=== PATIENT | female | born 1960 | race Caucasian/White ===

== ENCOUNTER 2022-08-30 08:18 | Day surgery (SDC) | payer OTHER ==
[~2022-08-30 08:18] MED LIST: Lactated Ringers 1,000 ML IV SCH
--- NOTE | 2022-08-30 08:33 | HP ---
DATE OF SURGERY: 08/30/2022 HISTORY OF PRESENT ILLNESS: The patient is a 61-year-old with dysphagia, upper esophagus gets stuck and has been going on for months worse recently. No prior upper endoscopy. Family history negative for esophageal cancer. PAST MEDICAL HISTORY: Irritable bowel syndrome, arthritis, gout, history of stroke, transient ischemic attack, depression, hypothyroidism, rheumatoid arthritis, diabetes mellitus type II, cardiac stenosis, coronary artery disease and had cardiac stents, chronic obstructive pulmonary disease. She had dysphagia and heartburn in the past. PAST SURGICAL HISTORY: Appendectomy, section, hysterectomy in the past. Colonoscopy in the past. Cardiac stents. Knee meniscus surgery. Colon resection at [facility] previously. Benign breast biopsy in the past. Cardiac cath in the past. MEDICATIONS: Isosorbide mononitrate, Probiomax, fluticasone furoate inhalation, nitroglycerin PRN, vitamin B12, vitamin D3, atorvastatin, meclizine, gabapentin, clopidogrel, ProAir, ropinirole, buspirone, metformin, levothyroxine, primidone, metoprolol, Trulicity, magnesium. ALLERGIES: NKDA. FAMILY HISTORY: Negative for esophageal cancer. SOCIAL HISTORY: Former smoker. No alcohol abuse. REVIEW OF SYSTEMS: Fourteen systems reviewed pertinent for multiple medical problems as noted above. No current chest pain or palpitations. Other systems negative or noncontributory as above and per preadmission questionnaire. PHYSICAL EXAMINATION: VITALS: Height 5'5". BMI 28.46. GENERAL: No acute distress. HEENT: Sclerae nonicteric. EOMI. Oropharynx mucous membranes moist. NECK: No JVD. CHEST: Equal excursion, nonlabored breathing. CVS: Regular rate and rhythm. ABDOMEN: Soft. No peritoneal signs. EXTREMITIES: No significant edema. NEURO: Alert, oriented, moving extremities symmetrically. PSYCH: Appropriate mood and affect. SKIN: Dry. IMPRESSION: Dysphagia upper esophagus, odynophagia. Needs EGD possible biopsy, possible dilatation. She was shown the risk sheet explained the procedure in detail including but not limited to bleeding or infection, risk of bowel injury or perforation, risk of missed or nondiagnosis or incomplete exam, possibly requiring barium swallow, other studies or procedures. Possibility should she have a stenosis and needs dilated and improves may need to be repeated again down the road. She also understands remote risk of perforation possible requiring transfer for stent placement as open procedure. She also understands that this could be more of a functional or neurologic issue. If she does not have a narrowed area may not benefit from dilatation and may not help. If she does have a narrowed area that the balloon dilatation does not help, she might need a different type of dilator at a different date. She understands. Will proceed with EGD possible biopsy possible dilatation as an outpatient.
[2022-08-30] MEDS ORDERED: Lactated Ringers 1,000 ML IV ONE (09:15)
[2022-08-30] MEDS ORDERED: Xylocaine-Mpf 2% 5 Ml Vial ONE (10:39)
[2022-08-30] MEDS ORDERED: Versed 2 MG/2 ML Injection ONE (10:39)
[2022-08-30] MEDS ORDERED: DIPRIVAN 200 MG/20 ML IV ONE (10:39)
[2022-08-30] MEDS ORDERED: Mylicon DROPS ONE (11:11)
[2022-08-30 11:51] VITALS: BP 131/92; PULSE 74; O2SAT 97
--- NOTE | 2022-08-30 15:05 | OP ---
SURGERY DATE/TIME: 08/30/2022 1046 PREOPERATIVE DIAGNOSIS: Dysphagia upper esophagus. POSTOPERATIVE DIAGNOSES: 1) Minimal to mild gastritis. 2) Food in the stomach, question gastroparesis, question NPO status. 3) Very short segment early distal esophagitis. 4) Proximal esophageal symptomatic mild narrowing and spasm requiring dilatation. PROCEDURES: 1) EGD with cold biopsy of the stomach to evaluate for Helicobacter pylori. 2) Cold biopsy distal esophagus to evaluate very short segment of mild distal esophagitis. 3) Proximal esophageal balloon dilatation symptomatic proximal esophageal narrowing and spasm (size 20 balloon). 4) ASA Class III. SURGEON: Dr. Pankaj Marroquin. ANESTHESIA: MAC. ESTIMATED BLOOD LOSS: Minimal. INDICATIONS: As noted above. Risks and benefits explained in detail and not limited to and consent was obtained. DESCRIPTION OF PROCEDURE AND FINDINGS: The patient is taken to the endoscopy room. MAC anesthesia introduced. After official time out and no disagreement with planned procedure, bite block positioned. Video gastroscope easily passed down the oropharynx. There were some proximal esophageal narrowing and spasm. There was no evidence of any mass or lesion to biopsy. Scope was able to be passed here but as she was having symptoms it was felt this warranted dilatation. The scope is passed down into the third and fourth portion of the duodenum. Duodenum grossly unremarkable. The scope pulled back in the stomach and had some mild gastric erythema and congestion. Cold biopsy is taken to evaluate for Helicobacter pylori. She did have a moderate amount of food in the proximal stomach this limited the exam a little bit. There were no signs of any obvious masses or ulcers visible but again either gastroparesis or questionable NPO status slightly limiting the exam. The scope pulled back. Gastroesophageal junction about 36 cm. In the short segment a 0.5 cm or less early esophagitis or a couple of thin slivers short segment esophagitis. Cold biopsy taken. Good hemostasis noted. Otherwise, no signs of any other mucosal lesions on withdrawal of the scope up to the proximal esophageal narrowing. Again, there are no lesions to biopsy, no mass. It was felt this warranted dilatation. The scope passed back down the stomach. A 20 balloon dilator carefully passed in the open area of the stomach and pulled back up to the proximal esophageal narrowed, spasm area and gradually inflated first stage for 20 seconds, second stage 30 seconds, final stage for approximately another 45 seconds to 2 minutes. Balloon was then decompressed. The scope withdrawn. The scope much more easily passed through this area. There is no evidence of any full thickness issue. The scope is withdrawn. The patient tolerated the procedure well. Findings discussed with the family out in the waiting area.
== END 2022-08-30 12:05 | disposition home or self-care (01) ==
LOC: SDC 08:18
PROVIDERS: ATTEND Surgery
DX: K29.70 Gastritis, unspecified, without bleeding (principal); R13.10 Dysphagia, unspecified; E11.9 Type 2 diabetes mellitus without complications; K20.90 Esophagitis, unspecified without bleeding; K22.2 Esophageal obstruction; T18.2XXA Foreign body in stomach, initial encounter
CPT/HCPCS: 82947; C1726; J2250; J2704; A9270-GY

== ENCOUNTER 2023-06-17 16:58 | Emergency (ER) | payer OTHER ==
[2023-06-17 17:07] VITALS: RESP 20
--- NOTE | 2023-06-17 17:28 | ERPHSYRPT ---
- History of Present Illness Source: patient Exam Limitations: no limitations Patient Subjective Stated Complaint: Pt states "I fell on tuesday and yesterday my left hand started to swell up and I hurt from my shoulder to my hand." Triage Nursing Assessment: Pt presented alert and oriented X 3, skin wpd. pt ambulates with a cane. Pt has swelling noted to right wrist and hand, tender to right shoulder. Hx Tetanus, Diphtheria Vaccination/Date Given: No Hx Influenza Vaccination/Date Given: Yes Hx Pneumococcal Vaccination/Date Given: Yes Immunizations Up to Date: Yes <FRAN SANDHU - Last Filed: 06/17/23 18:52> <GOVIND JACKSON - Last Filed: 06/17/23 19:12> - History of Present Illness Time Seen by Provider: 06/17/23 17:04 Physician History: Patient with right hand pain, right wrist pain, right shoulder pain. Patient states that she had a mechanical fall. Patient mechanical fall 4 days ago. She has been trying [id number] medication. No other fall or trauma. She is not on a blood thinner. (FRAN SANDHU) Allergies/Adverse Reactions: No Known Drug Allergies Allergy (Verified 08/30/22 08:44) Home Medications: Albuterol Sulfate [Proair Respiclick] 2 puffs IH Q6H PRN PRN 08/05/22 [History] Atorvastatin Calcium 10 mg PO DAILY 08/05/22 [History] Buspirone HCl 5 mg [Buspar 5 mg] 15 mg PO BID PRN PRN 08/05/22 [History] Cholecalciferol (Vitamin D3) [Vitamin D3] 1 tab PO WEEKLY 08/05/22 [History] Cyanocobalamin (Vitamin B-12) [Vitamin B-12] 1 tab SL DAILY 08/05/22 [History] Dulaglutide [Trulicity] 1.5 mg SQ WEEKLY 08/05/22 [History] Ergocalciferol (Vitamin D2) [Vitamin D2] 1 cap PO WEEKLY 08/05/22 [History] Fluoxetine HCl 20 mg [Prozac 20 MG] 20 mg PO DAILY 08/05/22 [History] Fluticasone Furoate [Arnuity Ellipta] 1 inh IH DAILY 08/05/22 [History] Gabapentin [Neurontin ] 1 tab PO BID 08/05/22 [History] Isosorbide Mononitrate [Isosorbide Mononitrate ER] 30 mg PO DAILY 08/05/22 [History] L.acidoph,Plant/B.animal,Long [Probiomax Daily Df 30B Cfu Cap] 1 cap PO UD 08/05/22 [History] Levothyroxine Sodium 100 Mcg [Synthroid 100 Mcg] 100 mg PO DAILY 08/05/22 [History] Loratadine 10 mg [Claritin 10 mg] 10 mg PO DAILY 08/05/22 [History] Magnesium Oxide [Magnesium] 250 mg PO DAILY 08/05/22 [History] Meclizine HCl 25 mg [Antivert 25 mg] 1 tab PO DAILY PRN PRN 08/05/22 [History] Metformin HCl 500 mg [Glucophage 500 MG] 1,000 mg PO BID 08/05/22 [History] Metoprolol Succinate 25 mg Xl* [Toprol-Xl 25MG Tablets] 25 mg PO DAILY 08/05/22 [History] Nitroglycerin 0.4 mg Tablet [Nitrostat 0.4 MG Tablet] 1 tab SL UD PRN 08/05/22 [History] Primidone 50 MG [Mysoline 50Mg] 50 mg PO DAILY 08/05/22 [History] Ropinirole HCl 0.5 mg [Requip 0.5 MG] 0.5 mg PO HS 08/05/22 [History] Travel Risk - International Travel Have you traveled outside of the country in past 3 weeks: No - Emerging Infectious Disease Are you exhibiting symptoms associated with any current EIDs: No <FRAN SANDHU - Last Filed: 06/17/23 18:52> - Past Medical History Pertinent Past Medical History: Yes Neurological History: Migraines, Peripheral Neuropathy, TIA ENT History: No Pertinent History Cardiac History: Coronary Artery Disease, High Cholesterol, Other Respiratory History: Asthma, Bronchitis, COPD, Pneumonia Endocrine Medical History: Diabetes Type II, Hypothyroidism Musculoskeletal History: Arthritis, Rheumatoid Arthritis GI Medical History: Diverticulitis, Hemorrhoids, Polyps History: No Pertinent History Psycho-Social History: Anxiety, Depression Female Reproductive Disorders: No Pertinent History Other Medical History: stent placed in heart - Past Surgical History Past Surgical History: Yes Neuro Surgical History: No Pertinent History Cardiac: Cardiac Stent Respiratory: No Pertinent History Gastrointestinal: Appendectomy, Colon Resection Genitourinary: No Pertinent History Musculoskeletal: Other Female Surgical History: Hysterectomy, Dilation & Curettage, Section Other Surgical History: x 3, bladder sling, both knee partial meniscal replacment,colonoscopy,nodule on chest biopsy,elbow surgery bilat,heel surgery right foot - Social History Smoking Status: Former smoker Exposure to second hand smoke: Yes Drug Use: none <FRAN SANDHU - Last Filed: 06/17/23 18:52> - Physical Exam SpO2: 97 <FRAN SANDHU - Last Filed: 06/17/23 18:52> - Nursing Vital Signs Nursing Vital Signs: Initial Vital Signs Temperature 98.2 F 06/17/23 17:01 Pulse Rate 77 06/17/23 17:01 Respiratory Rate 20 06/17/23 17:01 Blood Pressure 146/84 06/17/23 17:01 O2 Sat by Pulse Oximetry 97 06/17/23 17:01 Pain Scale Pain Intensity 5 - Physical Exam Comments: 06/17/23 17:28 Review of Systems Constitutional: Negative for fever. HENT: Negative for congestion. Respiratory: Negative for shortness of breath. Cardiovascular: Negative for chest pain. Gastrointestinal: Negative for abdominal pain. Genitourinary: Negative for dysuria. Musculoskeletal: Negative for back pain. Skin: Negative for rash. Neurological: Negative for headaches. Psychiatric/Behavioral: Negative for behavioral problems. All other systems reviewed and are negative. Physical Exam Vitals signs and nursing note reviewed. Constitutional: Appearance: Patient is well-developed. HENT: Head: Normocephalic and atraumatic. Eyes: Conjunctiva/sclera: Conjunctivae normal. Neck: Musculoskeletal: Normal range of motion. Trachea: No tracheal deviation. Cardiovascular: Rate and Rhythm: Normal rate. Pulmonary: Effort: Pulmonary effort is normal. No respiratory distress. Abdominal: Palpations: Abdomen is soft. Musculoskeletal: General: Right wrist tenderness. Does appear swollen. Right anterior shoulder tenderness. No elbow tenderness, distal hand pain. No obvious deformity, sensation intact, 2+ capillary refill, 2 point tactile discrimination intact. 5 out of 5 strength. Full range of motion with some pain at shoulder and wrist joints in the right extremity. Compartments are soft, nontender. Overlying skin shows no tenting, bruising, ecchymosis. Skin: General: Skin is warm and dry. Neurological/ Psychiatric: Mental Status: Mental status, behavior, interaction with environment is appropriate for patient's age and condition (FRAN SANDHU) - Course Nursing assessment & vital signs reviewed: Yes <FRAN SANDHU - Last Filed: 06/17/23 18:52> Ordered Tests: Active Orders 24 hr Category Date Time Status HAND (MINIMUM 3 VIEWS) Stat Exams 06/17/23 17:16 Completed SHOULDER Stat Exams 06/17/23 17:19 Completed WRIST (MIN 3 VIEWS) Stat Exams 06/17/23 17:16 Completed - Progress Progress: improved Counseled pt/family regarding: lab results, diagnosis, need for follow-up, rad results <FRAN SANDHU - Last Filed: 06/17/23 18:52> - Progress Progress: improved <GOVIND JACKSON - Last Filed: 06/17/23 19:12> - Progress Progress Note: 06/17/23 17:30 Plan for right wrist x-ray, right hand x-ray, right shoulder x-ray. There is no pain in the elbow full range of motion, no forearm tenderness outside of the wrist. Therefore we will not image these areas. 06/17/23 18:46 X-ray of the left wrist demonstrated IMPRESSION: 1. No evidence of fracture or luxation in the right wrist. 2. Osteoarthritic changes in the first carpometacarpal joint. Patient still having some pain there. I have a concern for occult fracture not seen on first x-ray. Therefore we will place patient in a sugar-tong splint. This was done by Sebastian Currie relations specialist. Patient will follow-up with orthopedic surgery next week closely. Flexeril, Tylenol conservative pain management going home. 06/17/23 18:53 Transfer of care to Dr. Govind Jackson at 7 PM. He will follow-up on all imaging. Disposition per this. (FRAN SANDHU) 06/17/23 19:08 I took over care from Dr Sandhu at 19:00. 06/17/23 19:09 shoulder xray: No acute osseous abnormality wrist xray: 1. No evidence of fracture or luxation in the right wrist. 2. Osteoarthritic changes in the first carpometacarpal joint. hand xray: 06/17/23 19:10 1. No evidence of acute osseous abnormality. 2. Osteoarthritic changes of the first carpometacarpal joint and interphalangeal joints. 3. Decreased bone density. no acute fractures, pt already in sugar-tong splint plan for dc home w/ orthopedic f/u on tuesday return to ED if pain intensifies or repeat fall occurs (GOVIND JACKSON) Medical Desision Making - Diagnostic Testing Diagnostic test were ordered, analyzed, and reviewed by me: Yes Radiological Interpretation: Reviewed by me, Teleradiologist Report - Risk of complications Minimal Risk: Minimal risk of morbidity <GOVIND JACKSON - Last Filed: 06/17/23 19:12> - Departure Departure Disposition: Home Critical Care Time: No <FRAN SANDHU - Last Filed: 06/17/23 18:52> - Departure Departure Disposition: Home Critical Care Time: No <GOVIND JACKSON - Last Filed: 06/17/23 19:12> - Departure Clinical Impression: Right wrist injury Condition: Stable Referrals: ALONDRA RHODES MD [Primary Care Provider] - Follow up/PCP as directed Instructions: Hand Pain (DC) Additional Instructions: shoulder xray: No acute osseous abnormality wrist xray: 1. No evidence of fracture or luxation in the right wrist. 2. Osteoarthritic changes in the first carpometacarpal joint. hand xray: 06/17/23 19:10 1. No evidence of acute osseous abnormality. 2. Osteoarthritic changes of the first carpometacarpal joint and interphalangeal joints. 3. Decreased bone density. no acute fractures, pt already in sugar-tong splint plan for dc home w/ orthopedic f/u on tuesday return to ED if pain intensifies or repeat fall occurs Prescriptions: Cyclobenzaprine HCl 10 mg [Flexeril 10 MG] 10 mg PO TID #12 tablet
[2023-06-17 18:03] VITALS: BP 140/80; PULSE 72; TEMP 98.3
[2023-06-17 18:32] VITALS: O2SAT 97
--- NOTE | 2023-06-17 18:44 | XRAY ---
CLINICAL HISTORY: fall COMPARISON: none TECHNIQUE: X-ray of the right wrist; AP, oblique and lateral views. FINDINGS: Normal bone mineralization. Radiological examination of the right wrist demonstrates no focal bony lesion. No bone erosion was noted. No acute fracture or luxation is evident. The cortical margins of the osseous structures are within normal limits. The first carpometacarpal joint shows articular surface sclerosis and narrowing of the articular space. Normal radiocarpal space and the rest of the carpometacarpal joint spaces. Small non-specific calcification of soft tissue, anterior to the distal radius. The rest of the soft tissues appear unremarkable. IMPRESSION: 1. No evidence of fracture or luxation in the right wrist. 2. Osteoarthritic changes in the first carpometacarpal joint. DISCLAIMER:A subtle bone abnormality or fracture may not be readily apparent on x-rays, thus clinical correlation and further imaging including follow up CT, MRI, or follow up x-rays are advised as needed. Electronically Signed by: Margarito Whatley MD. (06/17/2023 18:40:15 EDT)
--- NOTE | 2023-06-17 18:56 | XRAY ---
CLINICAL HISTORY: fall COMPARISON: none TECHNIQUE: X-ray of the right hand AP, oblique and lateral views. FINDINGS: Decreased bone density. No acute fracture or dislocation. The first carpometacarpal joint shows sclerosis of the articular surface and severe narrowing of the articular surface, asymmetrical in the first and second fingers. The distal and proximal interphalangeal joints show mild narrowing of the articular space and mild sclerosis. The intercarpal, rest of the carpometacarpal, and metacarpophalangeal joints are well maintained. Cortical margins and trabecular markings of the osseous structures are unremarkable. IMPRESSION: 1. No evidence of acute osseous abnormality. 2. Osteoarthritic changes of the first carpometacarpal joint and interphalangeal joints. 3. Decreased bone density. DISCLAIMER:A subtle bone abnormality or fracture may not be readily apparent on x-rays, thus clinical correlation and further imaging including follow up CT, MRI, or follow up x-rays are advised as needed. Electronically Signed by: Margarito Whatley MD. (06/17/2023 18:51:43 EDT)
--- NOTE | 2023-06-17 19:04 | XRAY ---
CLINICAL HISTORY: fall COMPARISON: None TECHNIQUE: X-ray of the right shoulder, AP/external and internal rotation, and Y views. FINDINGS: No evidence of fracture or dislocation was noted. Normal bone density was seen. Limited evaluation of the shoulder and acromioclavicular articular space due to rotation of views. Acromion type 2 with small inferior osteophyte. Incidental findings in the chest show nodular shadows in the right lower zone representing calcified granulomas IMPRESSION: No acute osseous abnormality. DISCLAIMER:A subtle bone abnormality or fracture may not be readily apparent on x-rays, thus clinical correlation and further imaging including follow-up CT, MRI, or follow-up X-rays are advised as needed. Electronically Signed by: Margarito Whatley MD. (06/17/2023 19:00:18 EDT)
== END 2023-06-17 19:30 | disposition home or self-care (01) ==
LOC: ED 16:58
DX: S69.91XA Unspecified injury of right wrist, hand and finger(s), initial encounter (principal); W19.XXXA Unspecified fall, initial encounter; M79.641 Pain in right hand; M25.511 Pain in right shoulder; E78.5 Hyperlipidemia, unspecified; E11.42 Type 2 diabetes mellitus with diabetic polyneuropathy; Z79.84 Long term (current) use of oral hypoglycemic drugs; Z79.85 Long-term (current) use of injectable non-insulin antidiabetic drugs; Z79.899 Other long term (current) drug therapy
CPT/HCPCS: 73030; 73110; 73130; 99282